=== PATIENT | male | born 1980 | race African-American/Black ===

== ENCOUNTER 2016-07-01 04:17 | Emergency (ER) | payer OTHER ==
[2016-07-01] MEDS ORDERED: IPRATROPIUM/ALBUTEROL 0.5-2.5 MG/3 ML AMPUL NEB ONE ×2 (04:19→04:34)
[2016-07-01] MEDS ORDERED: METHYLPREDNISOLONE INJ 125 MG/2 ML SDV IV ONE (04:19)
[2016-07-01] MEDS: ALBUTEROL SULFATE 0.083% NEB 2.5 MG/3 ML AMPUL NEB SCH ×2 (04:25→04:26)
[2016-07-01 04:40] LABS: ABSOLUTE EOSINOPHILS # (AUTO) 0.6 10^3/uL (0.0-0.6); ABSOLUTE LYMPHOCYTES (AUTO) 4.4 10^3/uL (0.5-4.7); ABSOLUTE MONOCYTES (AUTO) 0.6 10^3/uL (0.1-1.4); BASOPHILS % (AUTO) 0.5 % (0-2); HEMATOCRIT 43.5 % (37.9-51.0); HEMOGLOBIN 13.8 g/dL (13.5-17.0); HGB HCT DIFFERENCE -2.1; LYMPHOCYTES % (AUTO) 45.3 % (13-45); MEAN CORPUSCULAR HEMOGLOBIN 26.5 pg (27.0-33.4); MEAN CORPUSCULAR HGB CONC 31.6 g/dL (32.0-36.0); MEAN CORPUSCULAR VOLUME 84 fl (80-97); MONOCYTES % (AUTO) 6.2 % (3-13); RED BLOOD COUNT 5.19 10^6/uL (4.35-5.55); RED CELL DISTRIBUTION WIDTH 14.6 % (11.5-14.0); WHITE BLOOD COUNT 9.6 10^3/uL (4.0-10.5)
--- NOTE | 2016-07-01 04:43 | ER Document Report ---
ED Respiratory Problem - General Time seen by provider: 04:30 Mode of Arrival: Ambulatory Information source: Patient TRAVEL OUTSIDE OF THE [place] IN LAST 30 DAYS: No - HPI Patient complains to provider of: Asthma Onset: Just prior to arrival Severity: Moderate <ANGELO GIRON - Last Filed: 07/01/16 04:43> <KRYSTALBERNADETTE WEBSTER JOHNNY - Last Filed: 07/01/16 05:30> - General Chief Complaint: Breathing Difficulty Stated Complaint: DIFFICULTY BREATHING Notes: Patient is a 35-year-old male patient is to the emergency department with complaints of difficulty breathing. Patient states that his breathing became difficult just prior to arrival to the emergency department. Patient states that he does not have an inhaler at home. Patient has history of asthma and currently smokes about one pack per week. Patient states last time he had serious difficulty with his asthma and breathing was about one year prior. Patient has previously been placed on a ventilator for his asthma. Patient states he is able to move air better and can start to talk towards the end of the exam after taking a nebulizer treatment. Patient has no known allergies. ( ANGELO GIRON) - Related Data Allergies/Adverse Reactions: No Known Allergies Allergy (Verified 12/19/14 08:46) Past Medical History - General Information source: Patient - Social History Smoking Status: Current Every Day Smoker Cigarette use (# per day): Yes - 1 pack per week Family History: Other - ASTHMA Patient has suicidal ideation: No Patient has homicidal ideation: No - Past Medical History Cardiac Medical History: Reports: Hx Atrial Fibrillation, Hx Heart Attack - 2013 , Hx Hypertension Pulmonary Medical History: Reports: Hx Asthma - NO ATTACKS FOR 2 YEARS NOW Psychiatric Medical History: Reports: Hx Bipolar Disorder Past Surgical History: Reports: Hx Appendectomy - Immunizations Hx Diphtheria, Pertussis, Tetanus Vaccination: - UNSURE <ANGELO GIRON - Last Filed: 07/01/16 04:43> Review of Systems - Review of Systems Constitutional: No symptoms reported EENT: No symptoms reported Cardiovascular: No symptoms reported Respiratory: See HPI, Short of breath, Wheezing Gastrointestinal: No symptoms reported Genitourinary: No symptoms reported Male Genitourinary: No symptoms reported Musculoskeletal: No symptoms reported Skin: No symptoms reported Hematologic/Lymphatic: No symptoms reported Neurological/Psychological: No symptoms reported -: Yes All other systems reviewed and negative <ANGELO GIRON - Last Filed: 07/01/16 04:43> Physical Exam - Vital signs Interpretation: Normal - General General appearance: Alert In distress: Moderate - HEENT Head: Normocephalic, Atraumatic Eyes: Normal Pupils: PERRL Mucous membranes: Normal - Respiratory Respiratory status: Retractions Chest status: Nontender Breath sounds: Decreased air movement, Wheezing Chest palpation: Normal - Cardiovascular Rhythm: Regular Heart sounds: Normal auscultation Murmur: No - Abdominal Inspection: Normal Distension: No distension Bowel sounds: Normal Tenderness: Nontender Organomegaly: No organomegaly - Back Back: Normal, Nontender - Extremities General upper extremity: Normal inspection, Normal ROM, Normal strength General lower extremity: Normal inspection, Normal ROM, Normal strength - Neurological Neuro grossly intact: Yes Cognition: Normal Orientation: AAOx4 [place] Coma Scale Eye Opening: Spontaneous [place] Coma Scale Verbal: Oriented [place] Coma Scale Motor: Obeys Commands [place] Coma Scale Total: 15 Speech: Normal - Psychological Associated symptoms: Normal affect, Normal mood - Skin Skin Temperature: Warm Skin Moisture: Dry <ANGELO GIRON - Last Filed: 07/01/16 04:43> Course - Laboratory Result Diagrams: 07/01/16 04:29 07/01/16 04:29 <ANGELO GIRON - Last Filed: 07/01/16 04:43> - Laboratory Result Diagrams: 07/01/16 04:29 07/01/16 04:29 <BERNADETTE DUBOIS - Last Filed: 07/01/16 05:30> - Re-evaluation Re-evalutation: 07/01/16 05:29 Patient is improved after nebulizer treatments, steroids, magnesium. No further wheezing. Patient will be discharged home with albuterol inhaler and steroids. He is to follow-up with his doctor and stop smoking. No evidence for pneumonia on chest x-ray. Stable for discharge. (BERNADETTE DUBOIS) - Vital Signs Vital signs: Temp Pulse Resp BP Pulse Ox 96 07/01/16 04:31 (ANGELO GIRON) (BERNADETTE DUBOIS) - Laboratory Laboratory results interpreted by me: 07/01/16 07/01/16 04:29 04:29 MCH 26.5 L MCHC 31.6 L RDW 14.6 H Lymphocytes % 45.3 H Glucose 113 H (ANGELO GIRON) (BERNADETTE DUBOIS) Critical Care Note - Critical Care Note Total time excluding time spent on procedures (mins): 35 - evaluation and management of respiratory distress with multiple re-evaluations, counseling of patient <BERNADETTE DUBOIS - Last Filed: 07/01/16 05:30> Discharge <ANGELO GIRON - Last Filed: 07/01/16 04:43> <BERNADETTE DUBOIS - Last Filed: 07/01/16 05:30> - Discharge Clinical Impression: Asthma exacerbation, Respiratory distress Condition: Stable Disposition: HOME, SELF-CARE Instructions: Stop Smoking (OM), Asthma (OM) Prescriptions: Albuterol Sulfate [Proair HFA Inhalation Aerosol 8.5 gm MDI] 2 puff IH Q4H PRN # 1 mdi PRN Reason: Prednisone 40 mg PO DAILY #6 tablet Referrals: SHAREE HONG MD [Primary Care Provider] - Follow up in 3-5 days Scribe Attestation: 07/01/16 05:30 I personally performed the services described in the documentation, reviewed and edited the documentation which was dictated to the scribe in my presence, and it accurately records my words and actions. (BERNADETTE DUBOIS) Scribe Documentation - Scribe Written by Scrmicki:: Angelo Giron 07/01/16 04:50 acting as scribe for :: Eh <ANGELO GIRON - Last Filed: 07/01/16 04:43>
[2016-07-01] MEDS: MAGNESIUM SULFATE/D5W 100 ML IV SCH ×2 (04:50→05:00)
[2016-07-01 04:53] LABS: ALANINE AMINOTRANSFERASE 32 U/L (21-72); ALBUMIN 4.8 g/dL (3.5-5.0); ALKALINE PHOSPHATASE 54 U/L (38-126); ANION GAP 14 (5-19); ASPARTATE AMINO TRANSFERASE 23 U/L (17-59); BILIRUBIN,TOTAL 0.5 mg/dL (0.2-1.3); BLOOD UREA NITROGEN 17 mg/dL (7-20); CALCIUM 10.2 mg/dL (8.4-10.2); CARBON DIOXIDE 26 mmol/L (22-30); CHLORIDE 103 mmol/L (98-107); CREATININE RESULT 1.15 mg/dL (0.52-1.25); GLUCOSE 113 mg/dL (75-110); POTASSIUM 4.4 mmol/L (3.6-5.0); SODIUM 143.1 mmol/L (137-145); TOTAL PROTEIN 7.8 g/dL (6.3-8.2)
[2016-07-01] MEDS ORDERED: ALBUTEROL SULFATE HFA (90 MCG/PUFF) 8 GM MDI (1 MDI/ER DISP) IH ONE (05:28)
[2016-07-01 05:29] VITALS: BP 135/76
== END 2016-07-01 05:39 | disposition home or self-care (01) ==
LOC: ER 04:17
DX: J45.901 Unspecified asthma with (acute) exacerbation (principal); R06.02 Shortness of breath; F17.210 Nicotine dependence, cigarettes, uncomplicated; I25.2 Old myocardial infarction; I10 Essential (primary) hypertension; Z82.5 Family history of asthma and other chronic lower respiratory diseases
CPT/HCPCS: 94640 ×2; 99291; 96375; 96365; 36415; 85025; 80053; 71010; J2930; J3475; J3490; J7620

== ENCOUNTER 2016-07-24 19:31 | Emergency (ER) | payer OTHER ==
[2016-07-24] MEDS ORDERED: IBUPROFEN 800 MG TABLET PO ONE (20:50)
--- NOTE | 2016-07-24 20:51 | ER Document Report ---
ED Medical Screen (RME) - General Stated Complaint: CHEST PAIN Time seen by provider: 20:51 Mode of Arrival: Ambulatory Information source: Patient Notes: 35-year-old male has been sick for 2 days with cough, congestion, hemoptysis, asthma attack. Children were tested positive for influenza and took Tamiflu. He smokes one pack of cigarettes a day and drinks daily alcohol. He drinks a sixpack yesterday. insp/exp wheezing bilateral. I have greeted and performed a rapid initial assessment of this patient. A comprehensive ED assessment, evaluation of the patient, analysis of test results , and completion of the medical decision making process will be contacted by additional ED providers. TRAVEL OUTSIDE OF THE [place] IN LAST 30 DAYS: No - Related Data Allergies/Adverse Reactions: No Known Allergies Allergy (Verified 12/19/14 08:46) Past Medical History - Past Medical History Cardiac Medical History: Reports: Hx Atrial Fibrillation, Hx Heart Attack - 2012 , Hx Hypertension Denies: Hx Coronary Artery Disease Pulmonary Medical History: Reports: Hx Asthma - NO ATTACKS FOR 2 YEARS NOW Denies: Hx Bronchitis, Hx COPD, Hx Pneumonia, Hx Tuberculosis Neurological Medical History: Denies: Hx Cerebrovascular Accident, Hx Seizures Renal/ Medical History: Denies: Hx Peritoneal Dialysis Musculoskeltal Medical History: Reports Hx Arthritis - ?? Psychiatric Medical History: Reports: Hx Bipolar Disorder Past Surgical History: Reports: Hx Appendectomy. Denies: Hx Pacemaker - Immunizations Hx Diphtheria, Pertussis, Tetanus Vaccination: - UNSURE Physical Exam - Vital signs Vitals: Temp Pulse Resp BP Pulse Ox 102.7 F H 125 H 18 119/85 98 07/24/16 20:44 07/24/16 20:44 07/24/16 20:44 07/24/16 20:44 07/24/16 20:44 Course - Vital Signs Vital signs: Temp Pulse Resp BP Pulse Ox 102.7 F H 125 H 18 119/85 98 07/24/16 20:44 07/24/16 20:44 07/24/16 20:44 07/24/16 20:44 07/24/16 20:44
[2016-07-24] MEDS ORDERED: IPRATROPIUM/ALBUTEROL 0.5-2.5 MG/3 ML AMPUL NEB ONE (21:05)
[2016-07-24] MEDS ORDERED: ALBUTEROL SULFATE 0.083% NEB 2.5 MG/3 ML AMPUL NEB ONE (21:05)
[2016-07-25] MEDS ORDERED: PREDNISONE 20 MG TABLET PO ONE (01:22)
[2016-07-25] MEDS ORDERED: IPRATROPIUM/ALBUTEROL 0.5-2.5 MG/3 ML AMPUL NEB ONE ×2 (01:22→04:27)
[2016-07-25] MEDS ORDERED: ALBUTEROL SULFATE 0.083% NEB 2.5 MG/3 ML AMPUL NEB SCH (01:38)
[2016-07-25] MEDS ORDERED: KETOROLAC TROMETHAMINE INJ/PF 30 MG/1 ML SDV IV ONE (01:54)
--- NOTE | 2016-07-25 01:54 | ER Document Report ---
ED Flu Like - General Time seen by provider: 01:54 Mode of Arrival: Ambulatory Information source: Patient TRAVEL OUTSIDE OF THE [place] IN LAST 30 DAYS: No - HPI Patient complains to provider of: fever, body aches, difficulty breathing Onset: Other - 2 days Timing/Duration: Persistent, Worse Quality of pain: Achy Severity: Moderate Pain Level: 3 Associated symptoms: Body/muscle aches, Nonproductive cough, Fever, Shortness of breath Similar symptoms previously: No Recently seen / treated by doctor: No <LEANNA NAJERA - Last Filed: 07/25/16 06:01> <ARMINDA ANDERSON - Last Filed: 07/25/16 06:50> - General Chief Complaint: Flu Symptoms Stated Complaint: CHEST PAIN - HPI Notes: Patient is a 35-year-old male presenting to the emergency room complaining of fever, body aches, difficulty breathing, symptoms of been going on for the past 2 days, he reports a history of asthma, no other medical problems, he states his children have been sick and diagnosed with the flu recently (LEANNA NAJERA) - Related Data Allergies/Adverse Reactions: No Known Allergies Allergy (Verified 12/19/14 08:46) Past Medical History - General Information source: Patient - Social History Smoking Status: Current Every Day Smoker Family History: Other - ASTHMA Patient has suicidal ideation: No Patient has homicidal ideation: No - Past Medical History Cardiac Medical History: Reports: Hx Atrial Fibrillation, Hx Heart Attack - 2012 , Hx Hypertension Denies: Hx Coronary Artery Disease Pulmonary Medical History: Reports: Hx Asthma - NO ATTACKS FOR 2 YEARS NOW Denies: Hx Bronchitis, Hx COPD, Hx Pneumonia, Hx Tuberculosis Neurological Medical History: Denies: Hx Cerebrovascular Accident, Hx Seizures Renal/ Medical History: Denies: Hx Peritoneal Dialysis Musculoskeltal Medical History: Reports Hx Arthritis - ?? Psychiatric Medical History: Reports: Hx Bipolar Disorder Past Surgical History: Reports: Hx Appendectomy. Denies: Hx Pacemaker - Immunizations Hx Diphtheria, Pertussis, Tetanus Vaccination: - UNSURE <LEANNA NAJERA - Last Filed: 07/25/16 06:01> Review of Systems - Review of Systems Constitutional: Fever EENT: No symptoms reported Cardiovascular: No symptoms reported Respiratory: Cough, Short of breath, Wheezing Gastrointestinal: No symptoms reported Genitourinary: No symptoms reported Male Genitourinary: No symptoms reported Musculoskeletal: See HPI Skin: No symptoms reported Hematologic/Lymphatic: No symptoms reported Neurological/Psychological: No symptoms reported -: Yes All other systems reviewed and negative <LEANNA NAJERA - Last Filed: 07/25/16 06:01> Physical Exam - Vital signs Interpretation: Tachycardic, Febrile - General General appearance: Alert In distress: Moderate - HEENT Head: Normocephalic, Atraumatic Eyes: Normal Conjunctiva: Normal Extraocular movements intact: Yes Eyelashes: Normal Pupils: PERRL Mouth/Lips: Normal Mucous membranes: Normal Pharynx: Normal Neck: Normal - Respiratory Respiratory status: Tachypnea Chest status: Tender Breath sounds: Normal, Nonproductive cough, Wheezing Chest palpation: Normal - Cardiovascular Rhythm: Regular, Tachycardia Heart sounds: Normal auscultation Murmur: No - Abdominal Inspection: Normal Distension: No distension Bowel sounds: Normal Tenderness: Nontender Organomegaly: No organomegaly - Back Back: Normal, Nontender - Extremities General upper extremity: Normal inspection, Nontender, Normal color, Normal ROM , Normal temperature General lower extremity: Normal inspection, Nontender, Normal color, Normal ROM , Normal temperature, Normal weight bearing. No: Betty's sign - Neurological Neuro grossly intact: Yes Cognition: Normal Orientation: AAOx4 [place] Coma Scale Eye Opening: Spontaneous [place] Coma Scale Verbal: Oriented [place] Coma Scale Motor: Obeys Commands [place] Coma Scale Total: 15 Speech: Normal Motor strength normal: LUE, RUE, LLE, RLE Sensory: Normal - Psychological Associated symptoms: Normal affect, Normal mood - Skin Skin Temperature: Warm Skin Moisture: Dry Skin Color: Normal <LEANNA NAJERA - Last Filed: 07/25/16 06:01> Course - Laboratory Result Diagrams: 07/25/16 05:26 07/25/16 05:26 <LEANNA NAJERA - Last Filed: 07/25/16 06:01> - Laboratory Result Diagrams: 07/25/16 05:26 07/25/16 05:26 - Diagnostic Test Radiology reviewed: Image reviewed, Reports reviewed <ARMINDA ANDERSON - Last Filed: 07/25/16 06:50> - Re-evaluation Re-evalutation: 07/25/16 05:47 Patient positive for influenza A, tachycardic and febrile, he appears to be quite uncomfortable, therefore IV fluids and medications have been provided, multiple breathing treatments as well as IV magnesium, anticipate patient to be discharged home with instructions for supportive care and follow-up, advised to return if symptoms worsen, patient acknowledges understanding and agreement with this plan (LEANNA NAJERA) 07/25/16 06:49 Patient has been reevaluated, he looks well is in no distress, sitting up on room air satting 95%, patient states that he feels much better wishes to go home. I will discharge him with the understanding that he returns immediately if there is any other concerns, patient has already talked to the primary physician on the case as well regarding strict return precautions After performing a Medical Screening Examination, I estimate there is LOW risk for ACUTE CORONARY SYNDROME, RESPIRATORY FAILURE, SEPSIS OR MENINGITIS, thus I consider the discharge disposition reasonable. The patient and I have discussed the diagnosis and risks, and we agree with discharging home with close follow- up. We also discussed returning to the Emergency Department immediately if new or worsening symptoms occur. We have discussed the symptoms which are most concerning (e.g., changing or worsening pain, trouble swallowing or breathing, neck stiffness, fever) that necessitate immediate return. (ARMINDA ANDERSON) - Vital Signs Vital signs: Temp Pulse Resp BP Pulse Ox 100.9 F H 108 H 17 101/52 L 94 07/25/16 05:36 07/25/16 06:47 07/25/16 06:01 07/25/16 06:00 07/25/16 06:01 (LEANNA NAJERA) (ARMINDA ANDERSON) - Laboratory Laboratory results interpreted by me: 07/25/16 07/25/16 05:26 05:26 WBC 12.5 H RBC 4.34 L Hgb 11.5 L Hct 35.0 L MCH 26.5 L RDW 15.1 H Seg Neutrophils % 85.3 H Lymphocytes % 7.4 L Absolute Neutrophils 10.7 H Chloride 109 H Creatinine 1.30 H Glucose 145 H (ARMINDA ANDERSON) Discharge <LEANNA NAJERA - Last Filed: 07/25/16 06:01> <ARMINDA ANDERSON - Last Filed: 07/25/16 06:50> - Discharge Clinical Impression: Influenza A Condition: Stable Disposition: HOME, SELF-CARE Instructions: Acetaminophen, Oral Narcotic Medication ([facility]), Influenza ([facility]), Ibuprofen (General) ([facility]), Asthma ([facility]) Additional Instructions: Drink plenty of fluids. Tylenol or Motrin as needed for fever. Follow-up with your primary care provider in one to 2 days. Return to the emergency room immediately if symptoms worsen or any additional concerns. Prescriptions: Albuterol Sulfate [Proair HFA Inhalation Aerosol 8.5 gm MDI] 1 puff IH Q4 PRN # 1 mdi PRN Reason: Hydrocodone/Acetaminophen [Hydrocodon-Acetaminophen 5-325] 1 each PO Q6 #20 tablet Oseltamivir Phosphate [Tamiflu 75 mg Capsule] 75 mg PO BID #10 capsule Prednisone 40 mg PO DAILY #8 tablet Forms: Return to Work Referrals: SHAREE HONG MD [Primary Care Provider] - Follow up as needed
[2016-07-25] MEDS: NORMAL SALINE 1000 ML 1,000 ML IV PRN ×2 (01:57→03:41)
[2016-07-25] MEDS ORDERED: ACETAMINOPHEN 325 MG TABLET PO ONE (03:28)
[2016-07-25] MEDS ORDERED: NORMAL SALINE 1000 ML 1,000 ML IV PRN (03:28)
[2016-07-25] MEDS ORDERED: BENZONATATE 100 MG CAPSULE PO ONE (04:27)
[2016-07-25] MEDS ORDERED: MAGNESIUM SULFATE/D5W 1 GM/100 ML RTUPB IV ONE ×2 (04:27→04:35)
[2016-07-25] MEDS ORDERED: METHYLPREDNISOLONE INJ 125 MG/2 ML SDV IV ONE (04:27)
[2016-07-25] MEDS ORDERED: HYDROCODONE/ACETAMINOPHEN 5-325 MG TABLET PO ONE (04:27)
[2016-07-25 05:37] LABS: ABSOLUTE BASOPHILS # (AUTO) 0.1 10^3/uL (0.0-0.2); ABSOLUTE LYMPHOCYTES (AUTO) 0.9 10^3/uL (0.5-4.7); ABSOLUTE MONOCYTES (AUTO) 0.8 10^3/uL (0.1-1.4); ABSOLUTE NEUT (AUTO) 10.7 10^3/uL (1.7-8.2); BASOPHILS % (AUTO) 0.6 % (0-2); EOSINOPHILS % (AUTO) 0.1 % (0-6); HEMOGLOBIN 11.5 g/dL (13.5-17.0); HGB HCT DIFFERENCE -0.5; LYMPHOCYTES % (AUTO) 7.4 % (13-45); MEAN CORPUSCULAR HEMOGLOBIN 26.5 pg (27.0-33.4); MEAN CORPUSCULAR HGB CONC 32.9 g/dL (32.0-36.0); MEAN CORPUSCULAR VOLUME 81 fl (80-97); MONOCYTES % (AUTO) 6.6 % (3-13); RED BLOOD COUNT 4.34 10^6/uL (4.35-5.55); RED CELL DISTRIBUTION WIDTH 15.1 % (11.5-14.0); SEGMENTED NEUTROPHILS % (AUTO) 85.3 % (42-78); WHITE BLOOD COUNT 12.5 10^3/uL (4.0-10.5)
[2016-07-25 05:55] LABS: ALANINE AMINOTRANSFERASE 26 U/L (21-72); ALBUMIN 3.7 g/dL (3.5-5.0); ALKALINE PHOSPHATASE 52 U/L (38-126); ANION GAP 10 (5-19); ASPARTATE AMINO TRANSFERASE 18 U/L (17-59); BILIRUBIN,TOTAL 0.4 mg/dL (0.2-1.3); BLOOD UREA NITROGEN 14 mg/dL (7-20); CALCIUM 8.8 mg/dL (8.4-10.2); CARBON DIOXIDE 22 mmol/L (22-30); CHLORIDE 109 mmol/L (98-107); GLUCOSE 145 mg/dL (75-110); SODIUM 140.9 mmol/L (137-145); TOTAL PROTEIN 6.3 g/dL (6.3-8.2)
[2016-07-25 07:08] VITALS: BP 121/70
== END 2016-07-25 07:30 | disposition home or self-care (01) ==
LOC: ER 19:31
DX: J09.X2 Influenza due to identified novel influenza A virus with other respiratory manifestations (principal); R50.9 Fever, unspecified; M79.1 Myalgia; R05 Cough; F17.200 Nicotine dependence, unspecified, uncomplicated; I48.91 Unspecified atrial fibrillation; I10 Essential (primary) hypertension; I25.2 Old myocardial infarction
CPT/HCPCS: 94640 ×2; 99284; 96361; 96375; 96365; 96366; 36415; 87040; 85025; 80053; 87804; 71020; J2930; J1885; J3475; J7512; J7030; J7620 ×2

== ENCOUNTER 2017-03-21 03:32 | Emergency (ER) | payer OTHER ==
[2017-03-21 04:00] VITALS: BP 130/78
--- NOTE | 2017-03-21 05:07 | ER Document Report ---
ED General - General Chief Complaint: Back Pain Stated Complaint: FLANK PAIN Time Seen by Provider: 03/21/17 05:05 TRAVEL OUTSIDE OF THE [place] IN LAST 30 DAYS: No - Related Data Allergies/Adverse Reactions: No Known Allergies Allergy (Verified 03/21/17 03:56) Past Medical History - Social History Family History: Other - ASTHMA Patient has suicidal ideation: No Patient has homicidal ideation: No - Past Medical History Cardiac Medical History: Reports: Hx Atrial Fibrillation, Hx Heart Attack - 2013 , Hx Hypertension Denies: Hx Coronary Artery Disease Pulmonary Medical History: Reports: Hx Asthma - NO ATTACKS FOR 2 YEARS NOW Denies: Hx Bronchitis, Hx COPD, Hx Pneumonia, Hx Tuberculosis Neurological Medical History: Denies: Hx Cerebrovascular Accident, Hx Seizures Renal/ Medical History: Denies: Hx Peritoneal Dialysis Musculoskeltal Medical History: Reports Hx Arthritis - ?? Psychiatric Medical History: Reports: Hx Bipolar Disorder Past Surgical History: Reports: Hx Appendectomy. Denies: Hx Pacemaker - Immunizations Hx Diphtheria, Pertussis, Tetanus Vaccination: - UNSURE Physical Exam - Vital signs Vitals: Temp Pulse Resp BP Pulse Ox 98.9 F 96 18 130/78 H 96 03/21/17 03:56 03/21/17 03:56 03/21/17 03:56 03/21/17 03:56 03/21/17 03:56 Course - Re-evaluation Re-evalutation: 03/21/17 05:06 I went to the waiting room to call this patient's name. He was pacing the waiting room. He became very agitated yelling screaming and cursing and making threatening gestures to the triage nurse as I approached him. He was threatening to "sign himself out." At this point I was unable to examine him secondary to concern for safety of myself and those around. I asked security to see him. Despite complaining of shortness of breath and pain he was yelling and screaming in complete sentences and appeared comfortable. Based on this I was unable to evaluate him and he was escorted off the premises by security. He was not altered. - Vital Signs Vital signs: Temp Pulse Resp BP Pulse Ox 98.9 F 96 18 130/78 H 96 03/21/17 03:56 03/21/17 03:56 03/21/17 03:56 03/21/17 03:56 03/21/17 03:56
== END 2017-03-21 05:25 | disposition left against medical advice (07) ==
LOC: ER 03:32
DX: Z53.21 Procedure and treatment not carried out due to patient leaving prior to being seen by health care provider (principal)

== ENCOUNTER 2018-08-28 20:51 | Emergency (ER) | payer SELFPAY ==
[2018-08-28] MEDS ORDERED: IBUPROFEN 800 MG TABLET PO ONE (21:11)
[2018-08-28 22:00] LABS: ABSOLUTE LYMPHOCYTES (AUTO) 1.4 10^3/uL (0.5-4.7); ABSOLUTE MONOCYTES (AUTO) 0.7 10^3/uL (0.1-1.4); ABSOLUTE NEUT (AUTO) 7.5 10^3/uL (1.7-8.2); BASOPHILS % (AUTO) 0.5 % (0-2); EOSINOPHILS % (AUTO) 0.2 % (0-6); HEMATOCRIT 37.7 % (37.9-51.0); HEMOGLOBIN 12.6 g/dL (13.5-17.0); LYMPHOCYTES % (AUTO) 14.1 % (13-45); MEAN CORPUSCULAR HEMOGLOBIN 26.4 pg (27.0-33.4); MEAN CORPUSCULAR HGB CONC 33.5 g/dL (32.0-36.0); MEAN CORPUSCULAR VOLUME 79 fl (80-97); PLATELET COUNT 394 10^3/uL (150-450); RED BLOOD COUNT 4.79 10^6/uL (4.35-5.55); RED CELL DISTRIBUTION WIDTH 16.7 % (11.5-14.0); SEGMENTED NEUTROPHILS % (AUTO) 78.2 % (42-78); TOTAL CELLS COUNTED % (AUTO) 100 %; WHITE BLOOD COUNT 9.6 10^3/uL (4.0-10.5)
[2018-08-28 22:24] LABS: ALANINE AMINOTRANSFERASE 22 U/L (21-72); ALBUMIN 3.9 g/dL (3.5-5.0); ALKALINE PHOSPHATASE 60 U/L (38-126); ANION GAP 11 (5-19); ASPARTATE AMINO TRANSFERASE 17 U/L (17-59); BILIRUBIN,DIRECT 0.2 mg/dL (0.0-0.4); BILIRUBIN,TOTAL 0.3 mg/dL (0.2-1.3); BLOOD UREA NITROGEN 16 mg/dL (7-20); CALCIUM 9.6 mg/dL (8.4-10.2); CARBON DIOXIDE 25 mmol/L (22-30); CHLORIDE 103 mmol/L (98-107); GLUCOSE 132 mg/dL (75-110); POTASSIUM 3.9 mmol/L (3.6-5.0); SODIUM 138.8 mmol/L (137-145); TOTAL PROTEIN 8.2 g/dL (6.3-8.2)
[2018-08-28 22:29] LABS: APPEARANCE,URINE CLOUDY; BILIRUBIN,URINE NEGATIVE (NEGATIVE); COLOR,URINE AMBER; GLUCOSE, URINE NEGATIVE (NEGATIVE); KETONES,URINE NEGATIVE (NEGATIVE); LEUKOCYTE ESTERASE,URINE MODERATE (NEGATIVE); NITRITE,URINE NEGATIVE (NEGATIVE); PROTEIN,URINE 30 mg/dL (NEGATIVE); URINE SPECIFIC GRAVITY 1.029
[2018-08-28 22:41] LABS: URINE BARBITURATES SCREEN NEGATIVE; URINE BENZODIAZEPINES SCREEN NEGATIVE; URINE COCAINE SCREEN NEGATIVE; URINE MARIJUANA (THC) SCREEN NEGATIVE; URINE METHADONE SCREEN NEGATIVE; URINE PHENCYCLIDINE SCREEN NEGATIVE
[2018-08-28] MEDS ORDERED: DIAZEPAM INJ 10 MG/2 ML DISP.SYRIN IV ONE (22:41)
[2018-08-28] MEDS ORDERED: RINGERS SOLUTION,LACTATED 1,000 ML IV ONE (22:41)
[2018-08-28] MEDS ORDERED: ONDANSETRON HCL INJ/PF 4 MG/2 ML SDV IV ONE (22:41)
--- NOTE | 2018-08-28 23:03 | ER Document Report ---
ED General - General Chief Complaint: Flu Symptoms Stated Complaint: FEVER Time Seen by Provider: 08/28/18 22:06 Mode of Arrival: Ambulatory Information source: Patient, [facility] Records Notes: 37-year-old male with asthma, hypertension, bipolar disorder, reported methamphetamine addiction, heroin addiction, previous cocaine use presents with complaint myalgia, nausea, chills and sweats, palpitations. Patient states that his last injection of methamphetamine was approximately 10 days ago. He states that he has been trying to detox at home. He denies any chest pain, shortness of breath. Patient states that once the drugs are clear from his system that he will be accepted to [facility] for psychiatric evaluation and to be restarted on his psychiatric medications. He denies suicidal, homicidal ideation, visual and auditory hallucinations. TRAVEL OUTSIDE OF THE [place] IN LAST 30 DAYS: No - HPI Onset: Other Onset/Duration: Sudden Quality of pain: Achy Associated symptoms: Body/muscle aches, Chills, Fever, Nausea, Sweating. denies: Diarrhea, Vomiting Exacerbated by: Denies Relieved by: Denies Similar symptoms previously: Yes Recently seen / treated by doctor: No - Related Data Allergies/Adverse Reactions: No Known Allergies Allergy (Verified 08/28/18 21:03) Past Medical History - General Information source: Patient, [facility] Records - Social History Smoking Status: Current Every Day Smoker Cigarette use (# per day): Yes - 15 Chew tobacco use (# tins/day): No Smoking Education Provided: Yes - Smoking cessation counseling was provided for 4 minutes at the bedside Frequency of alcohol use: None Drug Abuse: Heroin - Remote use, Methamphetamine Lives with: Family Family History: Other - ASTHMA Patient has suicidal ideation: No Patient has homicidal ideation: No - Past Medical History Cardiac Medical History: Reports: Hx Atrial Fibrillation, Hx Heart Attack - 2013, Hx Hypertension Denies: Hx Coronary Artery Disease Pulmonary Medical History: Reports: Hx Asthma - NO ATTACKS FOR 2 YEARS NOW Denies: Hx Bronchitis, Hx COPD, Hx Pneumonia, Hx Tuberculosis Neurological Medical History: Denies: Hx Cerebrovascular Accident, Hx Seizures Renal/ Medical History: Denies: Hx Peritoneal Dialysis Musculoskeletal Medical History: Reports Hx Arthritis - ?? Psychiatric Medical History: Reports: Hx Bipolar Disorder Past Surgical History: Reports: Hx Appendectomy. Denies: Hx Pacemaker - Immunizations Hx Diphtheria, Pertussis, Tetanus Vaccination: - UNSURE Review of Systems - Review of Systems Notes: REVIEW OF SYSTEMS: CONSTITUTIONAL : Denies recent illness. Denies weight loss, recent hospitalizations. EENT: Denies visual changes, eye pain. Denies sore throat, oral lesions, difficulty swallowing. CARDIOVASCULAR: Denies chest pain. Denies palpitations. Denies lower extremity edema. RESPIRATORY: Denies cough. Denies shortness of breath, wheezing. GASTROINTESTINAL: Denies abdominal pain or distention. Denies vomiting, or diarrhea. Denies blood in vomitus, stools, or per rectum. Denies black, tarry stools. Denies constipation. GENITOURINARY: Denies difficulty urinating, painful urination, frequency, blood in urine, testicular pain or penile discharge. MUSCULOSKELETAL: Denies back or neck pain or stiffness. SKIN: Denies rash, lesions or sores. HEMATOLOGIC : Denies easy bruising or bleeding. LYMPHATIC: Denies swollen glands. NEUROLOGICAL: Denies confusion or altered mental status. Denies loss of consciousness. Denies dizziness or lightheadedness. Denies headache. Denies weakness or paralysis. Denies problems difficulty with ambulation, slurred speech. Denies sensory loss, numbness, or tingling. Denies seizures. PSYCHIATRIC: Denies anxiety or stress. Denies depression, suicidal ideation, or Physical Exam - Vital signs Vitals: Temp Pulse Resp BP Pulse Ox 102 F H 135 H 22 H 142/65 H 97 08/28/18 21:06 08/28/18 21:06 08/28/18 21:06 08/28/18 21:06 08/28/18 21:06 Interpretation: Tachycardic, Tachypneic, Febrile - Notes Notes: PHYSICAL EXAMINATION: GENERAL: Well-appearing, well-nourished and in no acute distress. HEAD: Atraumatic, normocephalic. EYES: Pupils equal round and reactive to light, extraocular movements intact, sclera anicteric, conjunctiva are normal. ENT: Nares patent, oropharynx clear without exudates. Moist mucous membranes. NECK: Normal range of motion, supple without lymphadenopathy LUNGS: Breath sounds clear to auscultation bilaterally and equal. No wheezes rales or rhonchi. HEART: tachycardic regular rhythm without murmurs ABDOMEN: Soft, nontender, nondistended abdomen. No guarding, no rebound. No masses appreciated. Musculoskeletal: Normal range of motion, no pitting or edema. No cyanosis. NEUROLOGICAL: Cranial nerves grossly intact. Normal speech, normal gait. Normal sensory, motor exams PSYCH: Normal mood, normal affect. SKIN: Warm, Dry, normal turgor, no rashes or lesions noted. Course - Re-evaluation Re-evalutation: Temp Pulse Resp BP Pulse Ox 102 F H 135 H 12 115/78 97 08/28/18 21:06 08/28/18 21:06 08/28/18 23:01 08/28/18 23:01 08/28/18 23:01 Laboratory 08/28/18 08/28/18 08/28/18 21:50 21:50 22:09 WBC 9.6 RBC 4.79 Hgb 12.6 L Hct 37.7 L MCV 79 L MCH 26.4 L MCHC 33.5 RDW 16.7 H Plt Count 394 Seg Neutrophils % 78.2 H Lymphocytes % 14.1 Monocytes % 7.0 Eosinophils % 0.2 Basophils % 0.5 Absolute Neutrophils 7.5 Absolute Lymphocytes 1.4 Absolute Monocytes 0.7 Absolute Eosinophils 0.0 Absolute Basophils 0.0 Sodium 138.8 Potassium 3.9 Chloride 103 Carbon Dioxide 25 Anion Gap 11 BUN 16 Creatinine 1.21 Est GFR ( Amer) > 60 Est GFR (Non-Af Amer) > 60 Glucose 132 H Calcium 9.6 Total Bilirubin 0.3 Direct Bilirubin 0.2 Neonat Total Bilirubin Not Reportable Neonat Direct Bilirubin Not Reportable Neonat Indirect Bili Not Reportable AST 17 ALT 22 Alkaline Phosphatase 60 Total Protein 8.2 Albumin 3.9 Urine Color [place] Urine Appearance CLOUDY Urine pH 5.0 Ur Specific [place] 1.029 Urine Protein 30 H Urine Glucose (UA) NEGATIVE Urine Ketones NEGATIVE Urine Blood SMALL H Urine Nitrite NEGATIVE Urine Bilirubin NEGATIVE Urine Urobilinogen 2.0 H Ur Leukocyte Esterase MODERATE H Urine WBC (Auto) >182 Urine RBC (Auto) 15 Squamous Epi Cells Auto 1 Urine Mucus (Auto) MANY Urine Ascorbic Acid NEGATIVE Urine Opiates Screen Urine Methadone Screen Ur Barbiturates Screen Ur Phencyclidine Scrn Ur Amphetamines Screen U Benzodiazepines Scrn Urine Cocaine Screen U Marijuana (THC) Screen Chlamydia DNA (PCR) N.gonorrhoeae DNA (PCR) 08/28/18 08/29/18 22:09 00:25 WBC RBC Hgb Hct MCV MCH MCHC RDW Plt Count Seg Neutrophils % Lymphocytes % Monocytes % Eosinophils % Basophils % Absolute Neutrophils Absolute Lymphocytes Absolute Monocytes Absolute Eosinophils Absolute Basophils Sodium Potassium Chloride Carbon Dioxide Anion Gap BUN Creatinine Est GFR ( Amer) Est GFR (Non-Af Amer) Glucose Calcium Total Bilirubin Direct Bilirubin Neonat Total Bilirubin Neonat Direct Bilirubin Neonat Indirect Bili AST ALT Alkaline Phosphatase Total Protein Albumin Urine Color Urine Appearance Urine pH Ur Specific [place] Urine Protein Urine Glucose (UA) Urine Ketones Urine Blood Urine Nitrite Urine Bilirubin Urine Urobilinogen Ur Leukocyte Esterase Urine WBC (Auto) Urine RBC (Auto) Squamous Epi Cells Auto Urine Mucus (Auto) Urine Ascorbic Acid Urine Opiates Screen NEGATIVE Urine Methadone Screen NEGATIVE Ur Barbiturates Screen NEGATIVE Ur Phencyclidine Scrn NEGATIVE Ur Amphetamines Screen U Benzodiazepines Scrn NEGATIVE Urine Cocaine Screen NEGATIVE U Marijuana (THC) Screen NEGATIVE Chlamydia DNA (PCR) NOT DETECTED N.gonorrhoeae DNA (PCR) DETECTED H 37-year-old male presents with multiple vague complaints of myalgias, nausea, palpitations. Admits that he is detoxing from methamphetamine which he states he last used 10 days ago. Vitals are reviewed and patient is tachycardic, febrile. He does not appear toxic or dehydrated. He is in no acute distress. Upon my exam heart rate has improved and is now 98. Fever now resolved. Patient did receive IV fluids, Valium, Zofran and and on reevaluation reports improvement and is requesting discharge home. 08/28/18 23:24 Reviewed patient's past medical history which states that he has atrial fibrillation so EKG was obtained and shows the patient to be in normal sinus rhythm at a rate of 98. 08/29/18 04:27 Patient's gonorrhea and Chlamydia testing was not finalized upon his discharge. He is positive for gonorrhea. Patient did receive 1 g of ceftriaxone IV. I have contacted the patient to let him know that he should abstain from sexual activity for over 1 week and that his partners will need to be treated. He did express understanding on the phone. Patient was evaluated and treated as appropriate for the patient's presenting symptoms and complaint, with consideration of any critical or life threatening conditions that may be associated with their obtained history and exam as noted above. All results were discussed with patient and... Patient provided the opportunity to ask questions, and express concerns. Patient was educated on treatments based on their presumed diagnosis as noted above. At this time we will discharge the patient with return precautions and follow-up recommendations. Verbal discharge instructions given a the bedside. Medication warnings reviewed. Patient is in agreement with this plan and has verbalized understanding of return precautions. After careful consideration I feel that that patient can be safely discharged from the emergency department, they were advised to followup with a primary care physician in 2-3 days. Dictation on this chart was performed using voice recognition software and may result in unintended grammatical, spelling, syntax or errors. 08/29/18 04:29 - Vital Signs Vital signs: Temp Pulse Resp BP Pulse Ox 98 F 135 H 14 117/77 100 08/29/18 02:38 08/28/18 21:06 08/29/18 02:38 08/29/18 02:38 08/29/18 02:38 - Laboratory Result Diagrams: 08/28/18 21:50 08/28/18 21:50 Laboratory results interpreted by me: 08/28/18 08/28/18 08/28/18 21:50 21:50 22:09 Hgb 12.6 L Hct 37.7 L MCV 79 L MCH 26.4 L RDW 16.7 H Seg Neutrophils % 78.2 H Glucose 132 H Urine Protein 30 H Urine Blood SMALL H Urine Urobilinogen 2.0 H Ur Leukocyte Esterase MODERATE H N.gonorrhoeae DNA (PCR) 08/29/18 00:25 Hgb Hct MCV MCH RDW Seg Neutrophils % Glucose Urine Protein Urine Blood Urine Urobilinogen Ur Leukocyte Esterase N.gonorrhoeae DNA (PCR) DETECTED H - EKG Interpretation by [place] EKG shows normal: Sinus rhythm Rate: Normal Rhythm: NSR Discharge - Discharge Clinical Impression: Withdrawal from methamphetamine, Nausea, Myalgia, Gonorrhea Urinary tract infection Qualifiers: Urinary tract infection type: site unspecified Hematuria presence: with hematuria Qualified Code(s): N39.0 - Urinary tract infection, site not specified Condition: Good Disposition: HOME, SELF-CARE Instructions: Myalagia (Muscle Pain) ([facility]), Nausea or Vomiting, Nonspecific ([facility]), Urinary Tract Infection ([facility]), Gonorrhea ([facility]) Additional Instructions: Your urine shows findings consistent with a urinary tract infection. Please take all the antibiotics as directed even if your symptoms have improved. Please follow-up with your primary care physician as needed. Return to emergency room if you develop fever >101F, persistent vomiting, become lethargic, have severe pain in your sides, or any other symptoms that are concerning to you. Prescriptions: Cephalexin Monohydrate [Keflex 500 mg Capsule] 500 mg PO BID 7 Days #14 capsule Ondansetron [Zofran Odt 4 mg Tablet] 1 - 2 tab PO Q4H PRN #15 tab.rapdis PRN Reason: For Nausea/Vomiting
--- NOTE | 2018-08-28 23:59 | EKG REPORT ---
SEVERITY:- NORMAL ECG - SINUS RHYTHM : Confirmed by: Ernesto Valera 28-Aug-2018 23:58:34
[2018-08-29] MEDS ORDERED: CEFTRIAXONE 1 GM/D5W RTU 1 GM/50 ML RTUPB IV ONE (00:13)
[2018-08-29 02:14] LABS: CHLAM PCR NOT DETECTED (NOT DETECT); GON PCR DETECTED (NOT DETECT)
[2018-08-29 02:42] VITALS: BP 117/77
== END 2018-08-29 02:41 | disposition home or self-care (01) ==
LOC: ER 20:51
DX: R50.9 Fever, unspecified (principal); M79.10 Myalgia, unspecified site; R61 Generalized hyperhidrosis; R11.0 Nausea; F15.10 Other stimulant abuse, uncomplicated; F17.210 Nicotine dependence, cigarettes, uncomplicated; I48.91 Unspecified atrial fibrillation; I10 Essential (primary) hypertension; I25.2 Old myocardial infarction
CPT/HCPCS: 93005; 99406; 99283; 96361; 96375; 96365; 36415; 85025; 80053; 81001; 80307; 87491; 87591; 93010; J3360; J2405; J7120; J0696

== ENCOUNTER 2020-01-01 13:31 | Observation (INO) | payer SELFPAY ==
[2020-01-01] MEDS ORDERED: RINGERS SOLUTION,LACTATED 1,000 ML IV ONE (13:49)
--- NOTE | 2020-01-01 13:51 | ER Document Report ---
ED Medical Screen (RME) - General Chief Complaint: Arm Injury Stated Complaint: ARM INJURY Time Seen by Provider: 01/01/20 13:38 Mode of Arrival: Wheelchair Information source: Patient Notes: Patient presents complaining of a right hand injury last week. Patient is concerned that his hand may be fractured. Patient states that he was shooting heroin up with his hand and last use about 3 or 4 days ago. Patient complains of left elbow and forearm pain with swelling and erythema. Patient reports subjective fever at home. Patient reports taking Tylenol and Advil an hour and a half prior to arrival. I have greeted and performed a rapid initial assessment of this patient. A comprehensive ED assessment and evaluation of the patient, analysis of test results and completion of the medical decision making process will be conducted by additional ED providers. TRAVEL OUTSIDE OF THE [place] IN LAST 30 DAYS: No - Related Data Allergies/Adverse Reactions: No Known Allergies Allergy (Verified 08/28/18 21:03) Past Medical History - Past Medical History Cardiac Medical History: Reports: Hx Atrial Fibrillation, Hx Heart Attack - 2012, Hx Hypertension Denies: Hx Coronary Artery Disease Pulmonary Medical History: Reports: Hx Asthma - NO ATTACKS FOR 2 YEARS NOW Denies: Hx Bronchitis, Hx COPD, Hx Pneumonia, Hx Tuberculosis Neurological Medical History: Denies: Hx Cerebrovascular Accident, Hx Seizures Renal/ Medical History: Denies: Hx Peritoneal Dialysis Musculoskeltal Medical History: Reports Hx Arthritis - ?? Psychiatric Medical History: Reports: Hx Bipolar Disorder Past Surgical History: Reports: Hx Appendectomy. Denies: Hx Pacemaker - Immunizations Hx Diphtheria, Pertussis, Tetanus Vaccination: - UNSURE Physical Exam - Vital signs Vitals: Temp Pulse Resp BP Pulse Ox 99.7 F 129 H 22 H 111/65 100 01/01/20 13:42 01/01/20 13:42 01/01/20 13:42 01/01/20 13:42 01/01/20 13:42 - General General appearance: Alert Notes: Tachycardia, 3+ swelling to the left forearm, forearm erythematous and warm to touch - Cardiovascular Rhythm: Tachycardia Heart sounds: S1 appreciated, S2 appreciated Course - Vital Signs Vital signs: Temp Pulse Resp BP Pulse Ox 99.7 F 129 H 22 H 111/65 100 01/01/20 13:42 01/01/20 13:42 01/01/20 13:42 01/01/20 13:42 01/01/20 13:42
[2020-01-01 14:27] LABS: VENOUS BLOOD PCO2 27.1 mmHg (35-63); VENOUS BLOOD PH 7.49 (7.30-7.42)
[2020-01-01 14:28] LABS: HEMATOCRIT 37.2 % (37.9-51.0); HEMOGLOBIN 12.3 g/dL (13.5-17.0); MEAN CORPUSCULAR VOLUME 79 fl (80-97); PLATELET COUNT 281 10^3/uL (150-450); RED BLOOD COUNT 4.73 10^6/uL (4.35-5.55); RED CELL DISTRIBUTION WIDTH 15.4 % (11.5-14.0); WHITE BLOOD COUNT 23.4 10^3/uL (4.0-10.5)
[2020-01-01] MEDS ORDERED: VANCOMYCIN HCL INJ 1000 MG VIAL IV ONE (14:32)
[2020-01-01] MEDS ORDERED: PIPERACILLIN/TAZOBACTAM 3.375 GM VIAL IV ONE (14:32)
[2020-01-01 14:33] LABS: INTERNATIONAL RATION (INR) 1.11; PROTHROMBIN TIME 14.3 SEC (11.4-15.4)
[2020-01-01] MEDS ORDERED: KETOROLAC TROMETHAMINE INJ/PF 30 MG/1 ML SDV IV ONE (14:33)
[2020-01-01] MEDS ORDERED: MORPHINE SULFATE 10 MG/ML INJ IV ONE ×2 (14:33→19:25)
--- NOTE | 2020-01-01 14:39 | ER Document Report ---
ED Extremity Problem, Upper - General Chief Complaint: Arm Injury Stated Complaint: ARM INJURY Time Seen by Provider: 01/01/20 13:38 Mode of Arrival: Wheelchair Notes: HPI: Patient is a 39-year-old admitted IV drug abuser who states he presents secondary to some left arm pain and swelling with a fever last night and this morning. He denies any chest pain or shortness of breath. Patient states he also has some right hand pain from a fall 1 week ago. He states he fell on an outstretched hand. He denies pain or injury to any other location. He did not have left arm pain until yesterday. ROS: See HPI All other review of systems reviewed and otherwise negative Reviewed vital signs and nursing note as charted by RN. PHYSICAL EXAM: CONSTITUTIONAL: Alert and oriented and responds appropriately to questions. Well-appearing; well-nourished HEAD: Normocephalic; atraumatic NECK: Supple without meningismus; non-tender; no cervical lymphadenopathy, no masses CARD: Tachycardic and regular; no murmurs; symmetric distal pulses RESP: Normal chest excursion without splinting or tachypnea; breath sounds clear and equal bilaterally ABD/GI: Normal bowel sounds; non-distended; soft, non-tender BACK: The back appears normal and is non-tender to palpation EXT: Some swelling and erythema to the left arm from the proximal left forearm two thirds down the forearm length. Tenderness is mostly to the volar region. It is slightly tense but no obvious appreciable fluctuance SKIN: See above NEURO: CN 2-12 intact; 5/5 bilateral upper and lower extremity strength with sensation intact to light touch PSYCH: The patient's mood and manner are appropriate. Grooming and personal hygiene are appropriate. TRAVEL OUTSIDE OF THE [place] IN LAST 30 DAYS: No - Related Data Allergies/Adverse Reactions: No Known Allergies Allergy (Verified 08/28/18 21:03) Past Medical History - General Information source: Patient - Social History Smoking Status: Unknown if Ever Smoked Family History: Other - ASTHMA - Past Medical History Cardiac Medical History: Reports: Hx Atrial Fibrillation, Hx Heart Attack - 2012, Hx Hypertension Denies: Hx Coronary Artery Disease Pulmonary Medical History: Reports: Hx Asthma - NO ATTACKS FOR 2 YEARS NOW Denies: Hx Bronchitis, Hx COPD, Hx Pneumonia, Hx Tuberculosis Neurological Medical History: Denies: Hx Cerebrovascular Accident, Hx Seizures Renal/ Medical History: Denies: Hx Peritoneal Dialysis Musculoskeletal Medical History: Reports Hx Arthritis - ?? Psychiatric Medical History: Reports: Hx Bipolar Disorder Past Surgical History: Reports: Hx Appendectomy. Denies: Hx Pacemaker - Immunizations Hx Diphtheria, Pertussis, Tetanus Vaccination: - UNSURE Physical Exam - Vital signs Vitals: Temp Pulse Resp BP Pulse Ox 99.7 F 129 H 22 H 111/65 100 01/01/20 13:42 01/01/20 13:42 01/01/20 13:42 01/01/20 13:42 01/01/20 13:42 Course - Re-evaluation Re-evalutation: 01/01/20 14:38 Given the history and physical examination with vital signs as recorded upon presentation, septic work-up was ordered. He also had an x-ray of the right hand and ultrasound of the left upper extremity. We would like to evaluate for the obvious deep space abscess as well as any possible foreign body. I will also order an x-ray of the left forearm to evaluate better any metallic foreign body. I did speak to Dr. Troy the general surgeon here at this time. He was very kind and states he would come to see the patient. I have provided broad-spectrum antibiotics. I have made the patient n.p.o. Whi te blood cell count is very elevated. Lactic acid is pending. 01/01/20 15:14 Lactic acid is recorded. We have provided the rest of the 30 cc/kg fluid order. Antibiotics have been given. X-ray shows no radiopaque foreign body. - Vital Signs Vital signs: Temp Pulse Resp BP Pulse Ox 99.7 F 129 H 22 H 111/65 100 01/01/20 13:42 01/01/20 13:42 01/01/20 13:42 01/01/20 13:42 01/01/20 13:42 - Laboratory Result Diagrams: 01/01/20 14:10 01/01/20 14:10 Laboratory results interpreted by me: 01/01/20 01/01/20 01/01/20 14:10 14:10 14:10 WBC 23.4 H Hgb 12.3 L Hct 37.2 L MCV 79 L MCH 26.0 L RDW 15.4 H VBG pH 7.49 H VBG pCO2 27.1 L Sodium 134.2 L Potassium 3.3 L Glucose 243 H Lactic Acid 01/01/20 14:10 WBC Hgb Hct MCV MCH RDW VBG pH VBG pCO2 Sodium Potassium Glucose Lactic Acid 2.7 H Critical Care Note - Critical Care Note Total time excluding time spent on procedures (mins): 35 Discharge - Discharge Clinical Impression: Abscess of left arm, IV drug abuse Sepsis Qualifiers: Sepsis type: sepsis due to unspecified organism Sepsis acute organ dysfunction status: unspecified Qualified Code(s): A41.9 - Sepsis, unspecified organism Condition: Fair Disposition: ADMITTED INPATIENT Admitting Provider: Surgicalist Unit Admitted: Surgical Floor
--- NOTE | 2020-01-01 14:39 | RADIOLOGY REPORT (SQ) ---
EXAM DESCRIPTION: CHEST SINGLE VIEW IMAGES COMPLETED DATE/TIME: 01/01/2020 2:27 pm REASON FOR STUDY: tachycardia COMPARISON: 07/24/2016 EXAM PARAMETERS: NUMBER OF VIEWS: One view. TECHNIQUE: Single frontal radiographic view of the chest acquired. RADIATION DOSE: NA LIMITATIONS: None. FINDINGS: LUNGS AND PLEURA: No opacities, masses or pneumothorax. No pleural effusion. MEDIASTINUM AND HILAR STRUCTURES: No masses. Contour normal. HEART AND VASCULAR STRUCTURES: Heart normal in size. Normal vasculature. BONES: No acute findings. HARDWARE: None in the chest. OTHER: No other significant finding. IMPRESSION: NO ACUTE RADIOGRAPHIC FINDING IN THE CHEST. TECHNICAL DOCUMENTATION: JOB ID: [id number] 2010 [employer]- All Rights Reserved Reading location - IP/workstation name: [email or web address]
--- NOTE | 2020-01-01 14:41 | RADIOLOGY REPORT (SQ) ---
EXAM DESCRIPTION: HAND RIGHT 3 VIEWS IMAGES COMPLETED DATE/TIME: 01/01/2020 2:27 pm REASON FOR STUDY: r hand injury COMPARISON: None. EXAM PARAMETERS: NUMBER OF VIEWS: Three views. TECHNIQUE: AP, lateral and oblique radiographic images acquired of the right hand. LIMITATIONS: None. FINDINGS: MINERALIZATION: Normal. BONES: Comminuted fracture of the proximal 5th metacarpal. No significant displacement. The fractur e does appear to extend through the articular surface with the carpal bone. JOINTS: No effusions. SOFT TISSUES: No soft tissue swelling. No foreign body. OTHER: No other significant finding. IMPRESSION: Comminuted essentially nondisplaced fracture of the proximal 5th metacarpal. The fractu re does appear to extend through the articular surface. TECHNICAL DOCUMENTATION: JOB ID: [id number] [employer]- All Rights Reserved Reading location - IP/workstation name: [email or web address]
[2020-01-01 14:49] LABS: ALBUMIN 3.7 g/dL (3.5-5.0); ALKALINE PHOSPHATASE 65 U/L (38-126); ANION GAP 9 (5-19); ASPARTATE AMINO TRANSFERASE 19 U/L (17-59); BILIRUBIN,DIRECT 0.1 mg/dL (0.0-0.4); BILIRUBIN,TOTAL 0.7 mg/dL (0.2-1.3); BLOOD UREA NITROGEN 20 mg/dL (7-20); CARBON DIOXIDE 23 mmol/L (22-30); CHLORIDE 102 mmol/L (98-107); GLUCOSE 243 mg/dL (75-110); POTASSIUM 3.3 mmol/L (3.6-5.0)
--- NOTE | 2020-01-01 15:05 | RADIOLOGY REPORT (SQ) ---
EXAM DESCRIPTION: FOREARM LEFT COMPLETED DATE/TIME: 01/01/2020 2:57 pm REASON FOR STUDY: portable; eval for foreign needle COMPARISON: None. NUMBER OF VIEWS: Two views. TECHNIQUE: Two radiographic images acquired of the left forearm, including elbow and wrist in at [place] st one projection. LIMITATIONS: None. FINDINGS: MINERALIZATION: Normal. BONES: No acute fracture. No worrisome bone lesions. SOFT TISSUES: No obvious swelling or foreign body. OTHER: No other significant finding. IMPRESSION: NEGATIVE STUDY OF THE LEFT FOREARM. NO RADIOPAQUE FOREIGN BODY. TECHNICAL DOCUMENTATION: JOB ID: [id number] 2010 [employer]- All Rights Reserved Reading location - IP/workstation name: [email or web address]
[2020-01-01] MEDS ORDERED: RINGERS LACTATED IV ONE (15:11)
[2020-01-01 15:12] LABS: ABSOLUTE LYMPHOCYTES# (MANUAL) 0.5 10^3/uL (0.5-4.7); ABSOLUTE MONOCYTES # (MANUAL) 0.9 10^3/uL (0.1-1.4); BASOPHILS % (MANUAL) 0 % (0-2); EOSINOPHILS % (MANUAL) 0 % (0-6); LYMPHOCYTES % (MANUAL) 2 % (13-45); MONOCYTES % (MANUAL) 4 % (3-13); SEGMENTED NEUTROPHILS % (MAN) 94 % (42-78); TOTAL CELLS COUNTED 100
[2020-01-01 15:14] LABS: ANISOCYTOSIS SLIGHT
[2020-01-01 15:15] LABS: PLATELET COMMENT ADEQUATE; PLATELET LARGE PRESENT
--- NOTE | 2020-01-01 16:09 | RADIOLOGY REPORT (SQ) ---
EXAM DESCRIPTION: U/S EXTREMITY NONVASCULAR LTD IMAGES COMPLETED DATE/TIME: 01/01/2020 3:50 pm REASON FOR STUDY: 20; left arm evaluluation for deep space abscess COMPARISON: None. TECHNIQUE: Dynamic and static grayscale images acquired of the localized site of clinical concern an d recorded on PACS. Additional selected color Doppler and spectral images recorded. SITE OF CONCERN: Left forearm. LIMITATIONS: None. FINDINGS: There is approximately 3.1 x 2.2 x 1.9 cm complex hypoechoic lesion with surrounding hyper emia consistent with abscess. IMPRESSION: 3 cm abscess. TECHNICAL DOCUMENTATION: JOB ID: [id number] 2010 [employer]- All Rights Reserved Reading location - IP/workstation name: [email or web address]
--- NOTE | 2020-01-01 20:02 | PDOC H&P ---
History of Present Illness Admission Date/PCP: 01/01/20 15:59 Patient complains of: Pains along the left forearm History of Present Illness: STEPHEN TAI is a 39 year old male who is IV drug abuser claims he injured his right hand from a fall a week ago and tried to self medicate by injecting heroin on his left forearm 4 days ago. He developed swelling pains and redness along the left forearm. Denies any fever no chills. X-ray of the left arm showed no foreign body. Past Medical History Cardiac Medical History: Reports: Atrial Fibrillation, Myocardial Infarction - 2013, Hypertension Denies: Coronary Artery Disease Pulmonary Medical History: Reports: Asthma - NO ATTACKS FOR 2 YEARS NOW Denies: Bronchitis, Chronic Obstructive Pulmonary Disease (COPD), Pneumonia, Tuberculosis Neurological Medical History: Denies: Seizures Musculoskeltal Medical History: Reports: Arthritis - ?? Psychiatric Medical History: Reports: Bipolar Disorder Hematology: Denies: Anemia Past Surgical History Past Surgical History: Reports: Appendectomy Denies: Pacemaker Social History Smoking Status: Unknown if Ever Smoked Hx Recreational Drug Use: No Hx Prescription Drug Abuse: No Family History Family History: Other - ASTHMA Parental Family History Reviewed: Yes - Father is a diabetic Children Family History Reviewed: No Sibling(s) Family History Reviewed.: No Medication/Allergy Home Medications: No Home Medications 01/01/20 Allergies/Adverse Reactions: No Known Allergies Allergy (Verified 08/28/18 21:03) Review of Systems Constitutional: PRESENT: as per HPI Musculoskeletal: PRESENT: other - Left forearm pains and swelling Physical Exam Vital Signs: Temp Pulse Resp BP Pulse Ox 99.7 F 129 H 15 111/65 100 01/01/20 13:42 01/01/20 13:42 01/01/20 18:00 01/01/20 13:42 01/01/20 18:05 Intake & Output 12/31/19 01/01/20 01/02/20 06:59 06:59 06:59 Intake Total 1000 Balance 1000 Weight 90 kg General appearance: PRESENT: severe distress Head exam: PRESENT: atraumatic Eye exam: PRESENT: conjunctiva pink Mouth exam: PRESENT: moist Neck exam: PRESENT: full ROM Respiratory exam: PRESENT: clear to auscultation rocío Cardiovascular exam: PRESENT: tachycardia Pulses: PRESENT: normal radial pulses GI/Abdominal exam: PRESENT: soft Rectal exam: PRESENT: deferred Extremities exam: PRESENT: other - Palpable pulses along the wrist. Swollen and erythematous left forearm and very tender Results Laboratory Results: 01/01/20 14:10 01/01/20 14:10 01/01/20 01/01/20 01/01/20 14:10 14:10 14:10 WBC 23.4 H RBC 4.73 Hgb 12.3 L Hct 37.2 L MCV 79 L MCH 26.0 L MCHC 33.0 RDW 15.4 H Plt Count 281 Seg Neutrophils % Not Reportable VBG pH 7.49 H VBG pCO2 27.1 L VBG HCO3 20.0 VBG Base Excess -2.0 Sodium 134.2 L Potassium 3.3 L Chloride 102 Carbon Dioxide 23 Anion Gap 9 BUN 20 Creatinine 1.11 Est GFR ( Amer) > 60 Glucose 243 H Lactic Acid Calcium 9.0 Total Bilirubin 0.7 AST 19 Alkaline Phosphatase 65 Total Protein 7.0 Albumin 3.7 01/01/20 01/01/20 14:10 17:20 WBC RBC Hgb Hct MCV MCH MCHC RDW Plt Count Seg Neutrophils % VBG pH VBG pCO2 VBG HCO3 VBG Base Excess Sodium Potassium Chloride Carbon Dioxide Anion Gap BUN Creatinine Est GFR ( Amer) Glucose Lactic Acid 2.7 H 1.7 Calcium Total Bilirubin AST Alkaline Phosphatase Total Protein Albumin Impressions: Chest X-Ray 01/01/20 13:49 IMPRESSION: NO ACUTE RADIOGRAPHIC FINDING IN THE CHEST. Hand X-Ray 01/01/20 13:50 IMPRESSION: Comminuted essentially nondisplaced fracture of the proximal 5th metacarpal. The fracture does appear to extend through the articular surface. Extremity Ultrasound 01/01/20 14:31 IMPRESSION: 3 cm abscess. Forearm X-Ray 01/01/20 14:40 IMPRESSION: NEGATIVE STUDY OF THE LEFT FOREARM. NO RADIOPAQUE FOREIGN BODY. Assessment & Plan - Diagnosis (1) Abscess of left arm Is this a current diagnosis for this admission?: Yes (2) IV drug abuse Is this a current diagnosis for this admission?: Yes - Time Time Spent: 30 to 50 Minutes - Inpatient Certification Medical Necessity: Need For IV Fluids, Need for Pain Control, Need for IV Antibiotics, Need for Surgery - Plan Summary Plan Summary: 39-year-old IV drug abuser had a fall injured the right hand about a week ago and he claims he because of the pains in the right hand he tried to self medicate by injecting heroin on his left forearm 4 days ago. The left forearm got swollen and painful and very tender. X-ray showed no foreign body. Start IV antibiotics For incision and drainage of abscess left forearm
[2020-01-01] MEDS ORDERED: DEXTROSE 5%-LACTATED RINGERS 1,000 ML IV PRN (20:06)
[2020-01-01] MEDS ORDERED: MIDAZOLAM 2 MG/2 ML INJ ONE ×2 (21:39→21:40)
[2020-01-01] MEDS ORDERED: MORPHINE SULFATE 10 MG/ML INJ ONE (21:39)
[2020-01-01] MEDS ORDERED: FENTANYL CITRATE INJ/PF 100 MCG/2 ML AMPUL ONE (21:39)
[2020-01-01] MEDS ORDERED: LIDOCAINE 0.5% INJ-PF (5 MG/ML) 50 ML SDV ONE (21:39)
[2020-01-01] MEDS ORDERED: PROPOFOL INJ 200 MG/20 ML VIAL IV ONE (21:39)
[2020-01-01] MEDS ORDERED: DIPHENHYDRAMINE HCL 50 MG/ML VIAL IV PRN (22:06)
[2020-01-01] MEDS ORDERED: FENTANYL CITRATE INJ/PF 100 MCG/2 ML AMPUL IV PRN ×3 (22:06)
[2020-01-01] MEDS ORDERED: MORPHINE SULFATE 10 MG/ML INJ IV PRN (22:06)
[2020-01-01] MEDS ORDERED: OXYCODONE-ACETAMINOPHEN 5-325 MG TABLET PO PRN ×2 (22:06)
[2020-01-01] MEDS ORDERED: PROMETHAZINE HCL INJ 25 MG/1 ML VIAL IV PRN ×2 (22:06)
[2020-01-01] MEDS ORDERED: MEPERIDINE HCL/PF INJ 25 MG/1 ML DISP.SYRIN IV PRN (22:06)
[2020-01-01] MEDS ORDERED: MEPERIDINE HCL/PF INJ 25 MG/1 ML DISP.SYRIN ONE (22:41)
[2020-01-01] MEDS ORDERED: ACETAMINOPHEN 1,000 MG/100 ML RTUPB IV ONE (22:45)
--- NOTE | 2020-01-01 22:47 | Operative Report ---
Operative Report DATE OF SURGERY: 01/01/20 PREOPERATIVE DIAGNOSIS: Abscess left forearm POSTOPERATIVE DIAGNOSIS: Subfascial abscess left forearm OPERATION: Incision and drainage of subfascial abscess left forearm SURGEON: KELLY GUO ANESTHESIA: GA TISSUE REMOVED OR ALTERED: Pus COMPLICATIONS: None ESTIMATED BLOOD LOSS: 50 cc QUANTITATIVE BLOOD LOSS: 50 INTRAOPERATIVE FINDINGS: Large subfascial mass above the brachial muscle cavity roughly measured about 13 cm long by 4 cm deep by 4 cm wide PROCEDURE: After adequate general anesthesia patient was placed in supine position with the left arm extended. The left arm was then prepped and draped in the usual s terile fashion. Appropriate timeout was then called. Next a cruciate incision made about were the most fluctuant area that I can and did check about 4 cm below the cubital crease and a little bit lateral. With the use of hemostat the fascia was open and a gush of foul-smelling yellowish pus extruded out. The fascia was divided with the use of cautery. I was unable to do digital palpation and cavity appears to be going distally. A lot of purulent material further extruded out. The incision was then extended distally in a vertical fashion. Fascia was opened. Muscle appears to be pink and intact. The cavity also was going towards the area of the cubital crease and therefore the incision was extended just at the crease without crossing it. Fascia was also divided and more purulent material extruded out. The cavity was subsequently pulse lavaged. Cautery was used to control the bleeding around the skin and subcutaneous area. A couple of veins were clamped cut and ligated with 3-0 Vicryl ties. The cavity was subsequently packed with the 2 bottle of half inch iodoform gauze. It was subsequently covered with four 4 x 4 and ABD and wrapped with Kerlix and Yuriy bandage. Patient tolerated procedure quite well and brought to recovery room in satisfactory condition.
[2020-01-01] MEDS: FENTANYL CITRATE INJ/PF 100 MCG/2 ML AMPUL ONE ×2 (22:53→23:00)
[2020-01-02] MEDS: MORPHINE SULFATE 10 MG/ML INJ IV PRN ×4 (00:31→22:06)
[2020-01-02 06:05] LABS: ANION GAP 10 (5-19); BLOOD UREA NITROGEN 14 mg/dL (7-20); CALCIUM 8.7 mg/dL (8.4-10.2); CARBON DIOXIDE 25 mmol/L (22-30); CHLORIDE 102 mmol/L (98-107); GLUCOSE 141 mg/dL (75-110); POTASSIUM 3.7 mmol/L (3.6-5.0)
[2020-01-02 06:13] LABS: HEMATOCRIT 33.5 % (37.9-51.0); HEMOGLOBIN 11.1 g/dL (13.5-17.0); MEAN CORPUSCULAR HEMOGLOBIN 26.1 pg (27.0-33.4); MEAN CORPUSCULAR HGB CONC 33.1 g/dL (32.0-36.0); MEAN CORPUSCULAR VOLUME 79 fl (80-97); PLATELET COUNT 250 10^3/uL (150-450); RED BLOOD COUNT 4.24 10^6/uL (4.35-5.55); RED CELL DISTRIBUTION WIDTH 15.5 % (11.5-14.0); WHITE BLOOD COUNT 23.4 10^3/uL (4.0-10.5)
[2020-01-02 06:52] LABS: ABSOLUTE LYMPHOCYTES# (MANUAL) 1.2 10^3/uL (0.5-4.7); ABSOLUTE MONOCYTES # (MANUAL) 1.6 10^3/uL (0.1-1.4); BAND NEUTROPHILS % (MANUAL) 4 % (3-5); BASOPHILS % (MANUAL) 0 % (0-2); EOSINOPHILS % (MANUAL) 0 % (0-6); LYMPHOCYTES % (MANUAL) 5 % (13-45); MONOCYTES % (MANUAL) 7 % (3-13); SEGMENTED NEUTROPHILS % (MAN) 84 % (42-78); TOTAL CELLS COUNTED 100
[2020-01-02 06:53] LABS: ANISOCYTOSIS SLIGHT; HYPOCHROMASIA SLIGHT
[2020-01-02 06:54] LABS: OVALOCYTES SLIGHT; PLATELET COMMENT ADEQUATE
--- NOTE | 2020-01-02 08:53 | PDOC PROGRESS REPORT ---
Subjective Progress Note for:: 01/02/20 Reason For Visit: ABSCESS OF LEFT ARM,IV DRUG ABUSE Physical Exam Vital Signs: Temp Pulse Resp BP Pulse Ox 102.9 F H 135 H 16 112/56 L 100 01/02/20 07:27 01/02/20 07:27 01/02/20 07:27 01/02/20 07:27 01/02/20 07:27 Intake & Output 01/01/20 01/02/20 01/03/20 06:59 06:59 06:59 Intake Total 2918 Output Total 1020 Balance 1898 Weight 94.1 kg Results Laboratory Results: 01/02/20 05:21 01/02/20 05:21 01/01/20 01/01/20 01/01/20 14:10 14:10 14:10 WBC 23.4 H RBC 4.73 Hgb 12.3 L Hct 37.2 L MCV 79 L MCH 26.0 L MCHC 33.0 RDW 15.4 H Plt Count 281 Seg Neutrophils % Not Reportable VBG pH 7.49 H VBG pCO2 27.1 L VBG HCO3 20.0 VBG Base Excess -2.0 Sodium 134.2 L Potassium 3.3 L Chloride 102 Carbon Dioxide 23 Anion Gap 9 BUN 20 Creatinine 1.11 Est GFR ( Amer) > 60 Glucose 243 H Lactic Acid Calcium 9.0 Total Bilirubin 0.7 AST 19 Alkaline Phosphatase 65 Total Protein 7.0 Albumin 3.7 01/01/20 01/01/20 01/02/20 14:10 17:20 05:21 WBC 23.4 H RBC 4.24 L Hgb 11.1 L Hct 33.5 L MCV 79 L MCH 26.1 L MCHC 33.1 RDW 15.5 H Plt Count 250 Seg Neutrophils % Not Reportable VBG pH VBG pCO2 VBG HCO3 VBG Base Excess Sodium Potassium Chloride Carbon Dioxide Anion Gap BUN Creatinine Est GFR ( Amer) Glucose Lactic Acid 2.7 H 1.7 Calcium Total Bilirubin AST Alkaline Phosphatase Total Protein Albumin 01/02/20 05:21 WBC RBC Hgb Hct MCV MCH MCHC RDW Plt Count Seg Neutrophils % VBG pH VBG pCO2 VBG HCO3 VBG Base Excess Sodium 137.1 Potassium 3.7 Chloride 102 Carbon Dioxide 25 Anion Gap 10 BUN 14 Creatinine 1.01 Est GFR ( Amer) > 60 Glucose 141 H Lactic Acid Calcium 8.7 Total Bilirubin AST Alkaline Phosphatase Total Protein Albumin Impressions: Chest X-Ray 01/01/20 13:49 IMPRESSION: NO ACUTE RADIOGRAPHIC FINDING IN THE CHEST. Hand X-Ray 01/01/20 13:50 IMPRESSION: Comminuted essentially nondisplaced fracture of the proximal 5th metacarpal. The fracture does appear to extend through the articular surface. Extremity Ultrasound 01/01/20 14:31 IMPRESSION: 3 cm abscess. Forearm X-Ray 01/01/20 14:40 IMPRESSION: NEGATIVE STUDY OF THE LEFT FOREARM. NO RADIOPAQUE FOREIGN BODY. Assessment & Plan - Diagnosis (1) Abscess of left arm Is this a current diagnosis for this admission?: Yes - Plan Summary Plan Summary: 39-year-old male with a deep space abscess to the left upper extremity. Packing was removed today. The wound appears clean, although there is a significant amount of swelling remaining. The patient continues to spike fevers. He has not been ordered any antibiotics. I will order Vanco and Zosyn to address his continued fevers, and severe left upper extremity infection. I will order the patient a diet. I will order oral and IV pain medicine. Elevate the left upper extremity to reduce swelling. Damp to dry dressing changes 3 times daily.
[2020-01-02] MEDS ORDERED: VANCOMYCIN HCL 0 MG in DEXTROSE 5%-WATER 250 ML IV NR (09:00)
[2020-01-02] MEDS: HYDROCODONE/ACETAMINOPHEN 10-325 MG TABLET PO PRN ×3 (09:04→20:18)
[2020-01-02] MEDS: KETOROLAC TROMETHAMINE INJ/PF 30 MG/1 ML SDV IV SCH ×2 (09:08→17:57)
--- NOTE | 2020-01-02 09:31 | EKG REPORT ---
SEVERITY:- ABNORMAL ECG - SINUS TACHYCARDIA NONSPECIFIC T ABNORMALITIES, DIFFUSE LEADS : Confirmed by: Ernesto Valera 02-Jan-2020 09:31:04
[2020-01-02] MEDS: PIPERACILLIN SODIUM/TAZOBACTAM 3.375 GM in NORMAL SALINE 100 ML IV SCH ×3 (10:06→20:23)
[2020-01-02] MEDS: VANCOMYCIN HCL 1,250 MG in DEXTROSE 5%-WATER 250 ML IV SCH ×2 (13:19→22:07)
[2020-01-03] MEDS: KETOROLAC TROMETHAMINE INJ/PF 30 MG/1 ML SDV IV SCH ×3 (01:10→17:43)
[2020-01-03] MEDS: HYDROCODONE/ACETAMINOPHEN 10-325 MG TABLET PO PRN ×2 (02:09→12:32)
[2020-01-03] MEDS: PIPERACILLIN SODIUM/TAZOBACTAM 3.375 GM in NORMAL SALINE 100 ML IV SCH ×4 (02:09→20:32)
[2020-01-03] MEDS: MORPHINE SULFATE 10 MG/ML INJ IV PRN ×3 (05:42→14:37)
[2020-01-03] MEDS: VANCOMYCIN HCL 1,250 MG in DEXTROSE 5%-WATER 250 ML IV SCH ×2 (05:44→14:38)
[2020-01-03] MEDS ORDERED: KETOROLAC TROMETHAMINE INJ/PF 30 MG/1 ML SDV ONE (07:36)
[2020-01-03] MEDS ORDERED: KETOROLAC TROMETHAMINE INJ/PF 30 MG/1 ML SDV IV ONE (08:30)
--- NOTE | 2020-01-03 08:42 | PDOC PROGRESS REPORT ---
Subjective Progress Note for:: 01/03/20 Reason For Visit: ABSCESS OF LEFT ARM,IV DRUG ABUSE Room, ambulating; sat down for dressing change. Physical Exam Vital Signs: Temp Pulse Resp BP Pulse Ox 99.0 F 103 H 17 127/72 H 100 01/03/20 07:49 01/03/20 08:03 01/03/20 08:03 01/03/20 08:03 01/03/20 08:03 Intake & Output 01/02/20 01/03/20 01/04/20 06:59 06:59 06:59 Intake Total 2918 1726 Output Total 1020 Balance 1898 1726 Weight 94.1 kg 97.7 kg General appearance: PRESENT: no acute distress Extremities exam: PRESENT: other - Patient removed; persisting left hand, and forearm swelling; the operative wound looks reasonably clean, no foul smell. Minimal seropurulent material mopped up with 4 x 4. Range of motion of left hand and wrist reasonably well preserved Results Laboratory Results: 01/02/20 05:21 01/02/20 05:21 Impressions: Chest X-Ray 01/01/20 13:49 IMPRESSION: NO ACUTE RADIOGRAPHIC FINDING IN THE CHEST. Hand X-Ray 01/01/20 13:50 IMPRESSION: Comminuted essentially nondisplaced fracture of the proximal 5th metacarpal. The fracture does appear to extend through the articular surface. Extremity Ultrasound 01/01/20 14:31 IMPRESSION: 3 cm abscess. Forearm X-Ray 01/01/20 14:40 IMPRESSION: NEGATIVE STUDY OF THE LEFT FOREARM. NO RADIOPAQUE FOREIGN BODY. Assessment & Plan - Diagnosis (1) Abscess of left arm Is this a current diagnosis for this admission?: Yes Plan: Impression: Slowly proving arm sepsis 2 days following wide debridement of the abscess site; persistent swelling, however range of motion wrist, forearm reasonably well preserved. No indication for further debridement today. Recommendations: 1. We will get patient into shower with chlorhexidine scrub brush; continue dressing change 2. Clarify whether patient needs formal evaluation of right hand for alleged fractures 3. Explained to patient why he should not have his IV replaced from the right upper extremity to the left upper extremity. 4. To new IV antibiotics and arm elevation; possibly home in the next 24 to 48 hours pending condition of the left arm (2) IV drug abuse Is this a current diagnosis for this admission?: Yes (3) Sepsis Qualifiers: Sepsis type: sepsis due to unspecified organism Sepsis acute organ dysfunction status: unspecified Qualified Code(s): A41.9 - Sepsis, unspecified organism
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
[2020-01-03] MEDS ORDERED: ACETAMINOPHEN 325 MG TABLET PO PRN (16:29)
[2020-01-03] MEDS: VANCOMYCIN HCL 1,500 MG in DEXTROSE 5%-WATER 250 ML IV SCH (21:35)
[2020-01-04] MEDS: KETOROLAC TROMETHAMINE INJ/PF 30 MG/1 ML SDV IV SCH ×2 (01:52→09:07)
[2020-01-04] MEDS: MORPHINE SULFATE 10 MG/ML INJ IV PRN ×2 (01:57→06:41)
[2020-01-04] MEDS: PIPERACILLIN SODIUM/TAZOBACTAM 3.375 GM in NORMAL SALINE 100 ML IV SCH ×3 (02:35→15:18)
[2020-01-04] MEDS: VANCOMYCIN HCL 1,500 MG in DEXTROSE 5%-WATER 250 ML IV SCH ×2 (07:03→15:18)
[2020-01-04 07:20] LABS: HEMATOCRIT 28.8 % (37.9-51.0); HEMOGLOBIN 9.5 g/dL (13.5-17.0); MEAN CORPUSCULAR HEMOGLOBIN 25.6 pg (27.0-33.4); MEAN CORPUSCULAR VOLUME 78 fl (80-97); PLATELET COUNT 310 10^3/uL (150-450); RED BLOOD COUNT 3.72 10^6/uL (4.35-5.55); RED CELL DISTRIBUTION WIDTH 15.8 % (11.5-14.0); WHITE BLOOD COUNT 15.4 10^3/uL (4.0-10.5)
[2020-01-04 08:28] LABS: ABSOLUTE LYMPHOCYTES# (MANUAL) 1.7 10^3/uL (0.5-4.7); ABSOLUTE MONOCYTES # (MANUAL) 0.5 10^3/uL (0.1-1.4); BASOPHILS % (MANUAL) 0 % (0-2); EOSINOPHILS % (MANUAL) 2 % (0-6); LYMPHOCYTES % (MANUAL) 11 % (13-45); MONOCYTES % (MANUAL) 3 % (3-13); SEGMENTED NEUTROPHILS % (MAN) 84 % (42-78); TOTAL CELLS COUNTED 100
[2020-01-04 08:30] LABS: ANISOCYTOSIS SLIGHT; OVALOCYTES SLIGHT; PLATELET COMMENT ADEQUATE
--- NOTE | 2020-01-04 08:51 | PDOC PROGRESS REPORT ---
Subjective Progress Note for:: 01/04/20 Reason For Visit: ABSCESS OF LEFT ARM,IV DRUG ABUSE Physical Exam Vital Signs: Temp Pulse Resp BP Pulse Ox 98.5 F 87 16 118/66 100 01/04/20 03:27 01/04/20 07:00 01/04/20 03:27 01/04/20 03:27 01/04/20 03:27 Intake & Output 01/03/20 01/04/20 01/05/20 06:59 06:59 06:59 Intake Total 1726 4555 Output Total 1 Balance 1726 4554 Weight 97.7 kg 97.7 kg Results Laboratory Results: 01/04/20 06:08 01/02/20 05:21 01/04/20 06:08 WBC 15.4 H RBC 3.72 L Hgb 9.5 L Hct 28.8 L MCV 78 L MCH 25.6 L MCHC 33.0 RDW 15.8 H Plt Count 310 Seg Neutrophils % Not Reportable Impressions: Chest X-Ray 01/01/20 13:49 IMPRESSION: NO ACUTE RADIOGRAPHIC FINDING IN THE CHEST. Hand X-Ray 01/01/20 13:50 IMPRESSION: Comminuted essentially nondisplaced fracture of the proximal 5th metacarpal. The fracture does appear to extend through the articular surface. Extremity Ultrasound 01/01/20 14:31 IMPRESSION: 3 cm abscess. Forearm X-Ray 01/01/20 14:40 IMPRESSION: NEGATIVE STUDY OF THE LEFT FOREARM. NO RADIOPAQUE FOREIGN BODY. Assessment & Plan - Diagnosis (1) Abscess of left arm Is this a current diagnosis for this admission?: Yes - Plan Summary Plan Summary: 39-year-old male status post incision and drainage of a deep space abscess of the left upper extremity. Overall the patient appears improved. His fevers have subsided, his swelling is improving, and his wound appears to be healing. Awaiting home health approval. Continue antibiotics. Gram stain shows gram- positive cocci. Awaiting speciation. Home with home health, when arranged.
[2020-01-04] MEDS: HYDROCODONE/ACETAMINOPHEN 10-325 MG TABLET PO PRN (08:52)
--- NOTE | 2020-01-04 13:26 | PDOC DISCHARGE SUMMARY ---
General - Admit/Disc Date/PCP Admission Date/Primary Care Provider: 01/01/20 15:59 Discharge Date: 01/04/20 - Discharge Diagnosis Final Diagnosis: deep left upper extremity abscess - Assessment Summary: This is a 39-year-old male, IV drug abuser, who presented with a large left upper extremity abscess. The abscess extended into deep spaces of the arm. The patient was admitted to the hospital, taken to the operating room. Surgery was performed, and the patient was taken to the floor in stable condition. The patient was continued on intravenous antibiotics until his fever subsided. The wound began to heal. The patient was comfortable with dressing changes. On 01/04/2020 the patient was much improved, dressing changes were arranged for home, and it was felt that he had reached maximal hospital benefit. At this time the patient is fit for discharge. - Additional Information Resuscitation Status: Full Code Discharge Diet: As Tolerated Discharge Activity: Balance Activity w/Rest Referrals: DOLORES REMY MD [ACTIVE STAFF] - (sticker in book) Prescriptions: Sulfamethoxazole/Trimethoprim [Bactrim Ds Tablet] 2 each PO BID #40 tablet Ibuprofen [Motrin 800 mg Tablet] 800 mg PO MEALS #42 tablet Hydrocodone/Acetaminophen [[place]burn 10-325 mg Tablet] 1 tab PO Q4HP PRN #30 tablet PRN Reason: For Pain Home Medications: Hydrocodone/Acetaminophen [[place]burn 10-325 mg Tablet] 1 tab PO Q4HP PRN #30 tablet 01/04/20 Ibuprofen [Motrin 800 mg Tablet] 800 mg PO MEALS #42 tablet 01/04/20 Sulfamethoxazole/Trimethoprim [Bactrim Ds Tablet] 2 each PO BID #40 tablet 01/04/20 Additional Information: Discharge home. Diet as tolerated. Activity: Nonstrenuous. Damp to dry dressing changes twice daily. Okay to shower. Follow-up with [facility] in 7 to 10 days. History of Present Illiness History of Present Illness: STEPHEN TAI is a 39 year old male Physical Exam Vital Signs: Temp Pulse Resp BP Pulse Ox 98.5 F 87 16 118/66 100 01/04/20 03:27 01/04/20 07:00 01/04/20 03:27 01/04/20 03:27 01/04/20 03:27 Intake & Output 01/03/20 01/04/2001/04/20 06:59 06:59 06:59 Intake Total 1726 3156 350 Output Total 1 Balance 1729 4555 350 Weight 97.7 kg 97.7 kg 97.7 kg Results Laboratory Results: WBC 15.4 10^3/uL (4.0-10.5) H 01/04/20 06:08 RBC 3.72 10^6/uL (4.35-5.55) L 01/04/20 06:08 Hgb 9.5 g/dL (13.5-17.0) L 01/04/20 06:08 Hct 28.8 % (37.9-51.0) L 01/04/20 06:08 MCV 78 fl (80-97) L 01/04/20 06:08 MCH 25.6 pg (27.0-33.4) L 01/04/20 06:08 MCHC 33.0 g/dL (32.0-36.0) 01/04/20 06:08 RDW 15.8 % (11.5-14.0) H 01/04/20 06:08 Plt Count 310 10^3/uL (150-450) 01/04/20 06:08 Lymph % (Auto) Not Reportable 01/04/20 06:08 Pender % (Auto) Not Reportable 01/04/20 06:08 Eos % (Auto) Not Reportable 01/04/20 06:08 Baso % (Auto) Not Reportable 01/04/20 06:08 Absolute Neuts (auto) Not Reportable 01/04/20 06:08 Absolute Lymphs (auto) Not Reportable 01/04/20 06:08 Absolute Monos (auto) Not Reportable 01/04/20 06:08 Absolute Eos (auto) Not Reportable 01/04/20 06:08 Absolute Basos (auto) Not Reportable 01/04/20 06:08 Total Counted 100 01/04/20 06:08 Seg Neutrophils % Not Reportable 01/04/20 06:08 Seg Neuts % (Manual) 84 % (42-78) H 01/04/20 06:08 Band Neutrophils % 4 % (3-5) 01/02/20 05:21 Lymphocytes % (Manual) 11 % (13-45) L 01/04/20 06:08 Monocytes % (Manual) 3 % (3-13) 01/04/20 06:08 Eosinophils % (Manual) 2 % (0-6) 01/04/20 06:08 Basophils % (Manual) 0 % (0-2) 01/04/20 06:08 Abs Neuts (Manual) 12.9 10^3/uL (1.7-8.2) H 01/04/20 06:08 Abs Lymphs (Manual) 1.7 10^3/uL (0.5-4.7) 01/04/20 06:08 Abs Monocytes (Manual) 0.5 10^3/uL (0.1-1.4) 01/04/20 06:08 Absolute Eos (Manual) 0.3 10^3/uL (0.0-0.6) 01/04/20 06:08 Abs Basophils (Manual) 0.0 10^3/uL (0.0-0.2) 01/04/20 06:08 Large Platelets PRESENT 01/01/20 14:10 Platelet Comment ADEQUATE 01/04/20 06:08 Hypochromasia SLIGHT 01/02/20 05:21 Anisocytosis SLIGHT 01/04/20 06:08 Microcytosis SLIGHT 01/04/20 06:08 Ovalocytes SLIGHT 01/04/20 06:08 PT 14.3 SEC (11.4-15.4) 01/01/20 14:10 INR 1.11 01/01/20 14:10 VBG pH 7.49 (7.30-7.42) H 01/01/20 14:10 VBG pCO2 27.1 mmHg (35-63) L 01/01/20 14:10 VBG HCO3 20.0 mmol/L (20-32) 01/01/20 14:10 VBG Base Excess -2.0 mmol/L 01/01/20 14:10 Sodium 137.1 mmol/L (137-145) 01/02/20 05:21 Potassium 3.7 mmol/L (3.6-5.0) 01/02/20 05:21 Chloride 102 mmol/L (98-107) 01/02/20 05:21 Carbon Dioxide 25 mmol/L (22-30) 01/02/20 05:21 Anion Gap 10 (5-19) 01/02/20 05:21 BUN 14 mg/dL (7-20) 01/02/20 05:21 Creatinine 1.01 mg/dL (0.52-1.25) 01/02/20 05:21 Est GFR ( Amer) > 60 (>60) 01/02/20 05:21 Est GFR (MDRD) Non-Af > 60 (>60) 01/02/20 05:21 Glucose 141 mg/dL (75-110) H 01/02/20 05:21 Lactic Acid 1.7 mmol/L (0.7-2.1) 01/01/20 17:20 Calcium 8.7 mg/dL (8.4-10.2) 01/02/20 05:21 Total Bilirubin 0.7 mg/dL (0.2-1.3) 01/01/20 14:10 Direct Bilirubin 0.1 mg/dL (0.0-0.4) 01/01/20 14:10 Neonat Total Bilirubin Not Reportable 01/01/20 14:10 Neonat Direct Bilirubin Not Reportable 01/01/20 14:10 Neonat Indirect Bili Not Reportable 01/01/20 14:10 AST 19 U/L (17-59) 01/01/20 14:10 ALT 15 U/L (<50) 01/01/20 14:10 Alkaline Phosphatase 65 U/L (38-126) 01/01/20 14:10 Total Protein 7.0 g/dL (6.3-8.2) 01/01/20 14:10 Albumin 3.7 g/dL (3.5-5.0) 01/01/20 14:10 Time Trough Drawn 1345 01/03/20 13:45 Vancomycin Trough 11.0 ug/mL (5.0-20.0) 01/03/20 13:45 SARS-CoV-2 (PCR) NEGATIVE (NEGATIVE) 01/01/20 19:55 Impressions: Chest X-Ray 01/01/20 13:49 IMPRESSION: NO ACUTE RADIOGRAPHIC FINDING IN THE CHEST. Hand X-Ray 01/01/20 13:50 IMPRESSION: Comminuted essentially nondisplaced fracture of the proximal 5th metacarpal. The fracture does appear to extend through the articular surface. Extremity Ultrasound 01/01/20 14:31 IMPRESSION: 3 cm abscess. Forearm X-Ray 01/01/20 14:40 IMPRESSION: NEGATIVE STUDY OF THE LEFT FOREARM. NO RADIOPAQUE FOREIGN BODY.
[2020-01-04 15:21] VITALS: BP 114/54
== END 2020-01-04 16:07 | disposition home or self-care (01) ==
LOC: ER 13:31 → INTOOBSV 15:59 → EH 15:59 → 5 23:50
PROVIDERS: ATTEND Surgery
DX: M60.022 Infective myositis, left upper arm (principal); S62.396A Other fracture of fifth metacarpal bone, right hand, initial encounter for closed fracture; Y04.2XXA Assault by strike against or bumped into by another person, initial encounter; W19.XXXA Unspecified fall, initial encounter; A41.9 Sepsis, unspecified organism; F11.10 Opioid abuse, uncomplicated; I25.2 Old myocardial infarction; F17.210 Nicotine dependence, cigarettes, uncomplicated; Z20.828 Contact with and (suspected) exposure to other viral communicable diseases
CPT/HCPCS: 00400; 36415; 71045; 76882; 80048; 80053; 80202; 82803; 83605; 85025; 85610; 87040; 87070; 87075; 87077; 87186; 87205; 87635; 93005; 93010; 99140; 99291; C9803; J0131; J1885; J2175; J2250; J2270; J2543; J2704; J3010; J3370; J3490; J7050; J7060; J7120; J7121

== ENCOUNTER 2020-01-06 15:53 | Emergency (ER) | payer SELFPAY | END 2020-01-06 18:24 | disposition left against medical advice (07) | LOC: ER 15:53 | DX: Z53.21 Procedure and treatment not carried out due to patient leaving prior to being seen by health care provider (principal) ==

== ENCOUNTER 2020-01-31 11:06 | Day surgery (SDC) | payer SELFPAY ==
--- NOTE | 2020-01-28 09:37 | EKG REPORT ---
SEVERITY:- NORMAL ECG - SINUS RHYTHM : Confirmed by: Ernesto Valera 28-Jan-2020 09:37:29
[~2020-01-31 11:06] MED LIST: ACETAMINOPHEN 325 MG TABLET PO PRN; CEFAZOLIN 2 GM/D5W RTU 2 GM/50 ML RTUPB IV PRN; IBUPROFEN 800 MG in NORMAL SALINE 250 ML IV PRN; LACTATED RINGERS 1000 ML IV PRN; LIDOCAINE 0.5% INJ-PF (5 MG/ML) 50 ML SDV SUBCUT PRN
[2020-01-31] MEDS ORDERED: CEFAZOLIN 2 GM/D5W RTU 2 GM/50 ML RTUPB IV ONE (11:19)
[2020-01-31] MEDS ORDERED: ACETAMINOPHEN 325 MG TABLET ONE (11:19)
[2020-01-31] MEDS ORDERED: MIDAZOLAM 2 MG/2 ML INJ ONE (12:18)
[2020-01-31] MEDS ORDERED: KETAMINE HCL INJ 500 MG/10 ML VIAL ONE (12:18)
[2020-01-31] MEDS ORDERED: FENTANYL CITRATE INJ/PF 100 MCG/2 ML AMPUL ONE (12:18)
[2020-01-31] MEDS ORDERED: PROPOFOL INJ 200 MG/20 ML VIAL IV ONE ×2 (12:19→12:24)
[2020-01-31] MEDS ORDERED: LIDOCAINE 1% INJ-PF (10 MG/ML) 30 ML SDV ONE (12:27)
[2020-01-31] MEDS ORDERED: BUPIVACAINE HCL 0.25 % INJ/PF (2.5 MG/1 ML) 30 ML VIAL ONE (12:27)
[2020-01-31] MEDS ORDERED: FENTANYL CITRATE INJ/PF 100 MCG/2 ML AMPUL IV PRN ×3 (13:09)
[2020-01-31] MEDS ORDERED: ONDANSETRON HCL INJ/PF 4 MG/2 ML SDV IV PRN (13:09)
[2020-01-31] MEDS ORDERED: DIPHENHYDRAMINE HCL 50 MG/ML VIAL IV PRN (13:09)
[2020-01-31] MEDS ORDERED: PROMETHAZINE HCL INJ 25 MG/1 ML VIAL IV PRN ×2 (13:09)
[2020-01-31] MEDS ORDERED: MEPERIDINE HCL/PF INJ 25 MG/1 ML DISP.SYRIN IV PRN (13:09)
--- NOTE | 2020-01-31 13:17 | Discharge Summary ---
Discharge Summary (SDC) - Discharge Final Diagnosis: 9.5 cm left arm wound Date of Surgery: 01/31/20 Discharge Date: 01/31/20 Condition: Stable Treatment or Instructions: Discharge home. Diet as tolerated. Activity: Nonstrenuous. Follow-up with [facility] in 2 weeks. Warren 5/3 2 5 mg p.o. every 6 hours as needed for pain. Okay to shower starting on Monday. No tub baths, swimming pools, or hot tubs x2 weeks. Prescriptions: Hydrocodone/Acetaminophen [Warren 5-325 mg Tablet] 1 tab PO Q6HP PRN #10 tablet PRN Reason: Discharge Diet: As Tolerated Respiratory Treatments at Home: Deep Breathing/Coughing, Incentive Spirometer Discharge Activity: Balance Activity w/Rest Home Care Assistance: None Needed Report the Following to Your Physician Immediately: Shortness of Breath, Nausea, Vomiting, Increase in Pain, Unusual Bleeding, Redness, Swelling, Warmth
[2020-01-31] MEDS ORDERED: HYDROCODONE/ACETAMINOPHEN 10-325 MG TABLET PO PRN (13:18)
[2020-01-31] MEDS: FENTANYL CITRATE INJ/PF 100 MCG/2 ML AMPUL ONE ×2 (13:27→13:35)
[2020-01-31 15:46] VITALS: BP 130/80
--- NOTE | 2020-02-05 10:44 | Operative Report ---
Nonrecallable Operative Report DATE OF SURGERY: 01/31/20 PREOPERATIVE DIAGNOSIS: 9.5 cm left arm wound POSTOPERATIVE DIAGNOSIS: Same as above OPERATION: Intermediate closure of 9.5 cm left arm wound SURGEON: DOLORES REMY ANESTHESIA: LMAC TISSUE REMOVED OR ALTERED: None COMPLICATIONS: None apparent ESTIMATED BLOOD LOSS: Minimal PROCEDURE: Drains/implants: None. Procedure in detail: After informed consent was obtained from the patient, he was brought into the operating room and laid in the supine position. The area of the left arm was prepped and draped in a normal sterile fashion. The patient previously had a large abscess of the left arm, creating a large left upper extremity wound. The wound was 9.5 cm in total length. Skin flaps were raised medially and laterally, in order to facilitate closure. This was done with Bovie electrocautery. The subcutaneous tissues were closed using 2-0 Vicryl suture in simple interrupted fashion. The overlying skin was closed using 3-0 nylon suture in a running horizontal mattress fashion. Once the wound was closed, a dressing was placed, and the procedure was concluded. All sponge, instrument, and needle counts were correct x2. Condition: Stable.
== END 2020-01-31 15:15 | disposition home or self-care (01) ==
LOC: OROUT 11:06
PROVIDERS: ATTEND Surgery
DX: S51.802D Unspecified open wound of left forearm, subsequent encounter (principal); X58.XXXD Exposure to other specified factors, subsequent encounter; F17.210 Nicotine dependence, cigarettes, uncomplicated; I25.2 Old myocardial infarction; I10 Essential (primary) hypertension; Z03.818 Encounter for observation for suspected exposure to other biological agents ruled out
CPT/HCPCS: 93005; 87635; 93010; 00400; 12034; J2250; J3010; J3490 ×2; J7050; J2704; J0690; J1741; C9803; 400